=== PATIENT | male | born 1995 | race African-American/Black ===

== ENCOUNTER 2018-05-21 08:37 | Inpatient (IN) ==
[2018-05-21] MEDS ORDERED: ONDANSETRON INJ 2 MG/ML 2 ML VIAL IV STA ×2 (09:02→11:16)
[2018-05-21] MEDS ORDERED: SODIUM CHLORIDE 0.9% 1000ML 1,000 ML IV ONE ×2 (09:02→10:08)
[2018-05-21 09:25] LABS: Basophils # (auto) 0.02 K/uL (0-0.2); Basophils % (auto) 0.4 %; Eosinophils # (auto) 0.03 K/uL (0-0.5); Eosinophils % (auto) 0.6 %; Hematocrit (blood only) 42.4 % (42-52); Immature Granulocytes # (auto) 0.02 K/uL (0.00-0.02); Immature Granulocytes % (auto) 0.4 %; Lymphocytes # (auto) 1.29 K/uL (1.2-3.4); Lymphocytes % (auto) 26.5 %; Mean Corpuscular Volume 87.8 fL (80-100); Mean Platelet Volume 11.2 fL (7.4-10.4); Monocytes # (auto) 0.16 K/uL (0.11-0.59); Monocytes % (auto) 3.3 %; Neutrophils # (auto) 3.35 K/uL (1.4-6.5); Neutrophils % (auto) 68.8 %; Platelet Count 275 K/uL (130-400); RDW Standard Deviation 45.3 fL (36.4-46.3); Red Blood Count 4.83 M/uL (4.7-6.1); White Blood Count 4.87 K/uL (4.8-10.8)
--- NOTE | 2018-05-21 09:25 | XRay Report ---
XR chest 1V portable CLINICAL HISTORY: overdose COMPARISON STUDY: No previous studies for comparison. FINDINGS: Lung volumes are normal. There is no pneumothorax or pleural effusion. There is no consolid ation or evidence for pulmonary edema. Cardiomediastinal silhouette is normal. IMPRESSION: No acute cardiopulmonary findings. Electronically signed by: Portillo Kahn M.D. 05/21/2018 9:24 AM
[2018-05-21 09:35] LABS: INR 1.1 (0.9-1.1); Partial Thromboplastin Ratio 0.8; Partial Thromboplastin Time 21.8 Seconds (21.0-31.0)
[2018-05-21 09:44] LABS: Alanine Aminotransferase 46 U/L (12-78); Albumin Level 3.5 gm/dl (3.4-5.0); Aspartate Aminotransferase 48 U/L (15-37); BUN Creatinine Ratio 14.8 (10-20); Blood Urea Nitrogen 14 mg/dl (7-18); Calcium 8.4 mg/dl (8.5-10.1); Carbon Dioxide 24 mmol/L (21-32); Chloride 111 mmol/L (98-107); Est GFR (African American) 130.4; Est GFR (Non-African American) 112.5; Glucose 162 mg/dl (70-99); Potassium 3.5 mmol/L (3.5-5.1); Sodium 145 mmol/L (136-145)
[2018-05-21 09:49] LABS: Alkaline Phosphatase 70 U/L (45-117); Bilirubin,Total 0.9 mg/dl (0.2-1); Globulin 3.7 gm/dl (2.5-4.0); Total Protein 7.2 gm/dl (6.4-8.2); Troponin I < 0.015 ng/ml (0-0.045)
[2018-05-21] MEDS ORDERED: LORazepam 0.5 MG/1 ML VIAL IV STA ×2 (10:00→12:07)
[2018-05-21 10:03] LABS: Acetaminophen 238 ug/ml (10-30); Salicylate < 1.7 mg/dl (2.8-20)
[2018-05-21] MEDS ORDERED: AcetylCYSTEINE IV 21 HR REGIMEN (>40KG) IV STA (10:05)
[2018-05-21] MEDS ORDERED: DEXTROSE 5% IV ONE ×3 (10:05→15:07)
[2018-05-21] MEDS ORDERED: ACETYLCYSTEINE IV ONE ×3 (10:05→15:07)
--- NOTE | 2018-05-21 10:26 | History & Physical Report ---
Date of Service May 21, 2018 Assessment & Plan (1) Intentional acetaminophen overdose: ED physician spoke with poison control, recs for NAC protocol LFTs WNL Cr WNL Tox sreen + for acetaminophen and EtOH, neg for salicylates, remainder pending EKG with sinus tachy Monitor on tele Psych c/s pending (2) Alcohol use: EtOH withdrawal protocol (3) DVT prophylaxis: SCDs History of Present Illness Primary Care Provider: NO PCP 22 y/o M who was brought to the ED after an intentional overdose attempt. Per ED physician, pt had a roommate with him when he arrived who stated that pt was acting unusual last night. Roommate is not present during my discussion. Pt states he took "10, 20, 30" tylenol last night around 8pm. When asked why, he stated "I don't want to talk about it". He also states he drank about 1/2 of a bottle of whiskey. He states that he does not drink daily, usually only on the weekends, but that would be a typical amount for him to drink when he does drink. No hx of seizures or withdrawals. He denies prior hx of attempted overdose or attempting to hurt himself in other ways. Pt had been vomiting in the ED, however he states he is feeling better now. Pt denies fever, SOB, chest pain, abd pain, n/v/c/d, LE pain or swelling. Allergies Allergy/AdvReac Type Severity Reaction Status Date / Time No Known Allergies Allergy Unverified 05/21/18 08:53 Home Medications Home Medications Medication Instructions Recorded Confirmed Type No Known Home Medications 05/21/18 05/21/18 History Past Med/Surg History Medical History Alcohol abuse (Acute) Social History Feels Safe at Home: Yes Smoking Status: Never smoker Hx Alcohol Use: Yes (1/2 bottle of whiskey on the weekends) Hx Substance Use: No Review of Systems Pertinent positives and negatives reviewed in HPI--all others negative Physical Exam Vital Signs (Past 24 Hours): Last Vital Signs Temp 36.5 C 05/21/18 08:38 Pulse 98 H 05/21/18 10:00 Resp 20 05/21/18 10:00 BP 139/84 05/21/18 10:00 Pulse Ox 97 05/21/18 10:00 Constitutional: WD/WN, vitals as above + ill appearing and + obese; no acute distress Eyes: normal visual rodriguez by confrontation and + anicteric sclerae Neck: normal visual inspection and trachea midline Respiratory: normal respiratory effort, lungs clear to auscultation Cardiovascular: Rate/Rhythm: regular rate and regular rhythm Gastrointestinal (Abdomen): Inspection/Auscultation: abdomen not distended Percussion/Palpation: abdomen soft; abdomen nontender Musculoskeletal: Head/Neck/Chest: normocephalic and head atraumatic negative for edema, peripheral pulses intact Skin: no rashes, warm and dry Neurologic: awake; not confused Speech / Cognition: normal speech Psychiatric: Orientation: oriented x 3 Affect: + flat affect Results & Data Diagnostic Findings CXR: neg for acute ECG Rhythm: sinus tachycardia Code Status & VTE Plan VTE Prophylaxis Plan VTE Prophylaxis will be ordered: Yes
[2018-05-21 10:29] LABS: Amphetamines+Metham, Urine Neg (Neg); Barbiturates, Urine Neg (Neg); Benzodiazepine, Urine Neg (Neg); Cocaine, Urine Neg (Neg); MDMA (Ecstacy), Urine Neg (Neg); Methadone, Urine Neg (Neg); Opiate, Urine Neg (Neg); Phencyclidine, Urine Neg (Neg)
[2018-05-21] MEDS ORDERED: LORazepam 1 MG TAB PO PRN (14:05)
[2018-05-21] MEDS ORDERED: ONDANSETRON INJ 2 MG/ML 2 ML VIAL IV PRN (14:05)
[2018-05-21] MEDS ORDERED: MAGNESIUM HYDROXIDE SUSP 30 ML UDC PO PRN (14:05)
[2018-05-21] MEDS ORDERED: LORazepam 1 MG/2 ML VIAL IV PRN (14:05)
[2018-05-21] MEDS ORDERED: MULTI-VITAMIN INFUSION 10 ML, THIAMINE HCL 100 MG, FOLIC ACID 1 MG in SODIUM CHLORIDE 0... IV SCH (15:00)
--- NOTE | 2018-05-21 15:20 | Emergency Department Note ---
Entered by Rosa M Gagnon acting as a scribe for Karsten Womack MD History of Present Illness General Chief complaint: Overdose (Intentional) Stated complaint: TOOK A BUNCH OF PILLS Time Seen by Provider: 05/21/18 08:50 Source: patient and other (roommate, nursing staff) History of Present Illness Provider complaint: overdose Onset (ago): hour(s) (last night) Location: left and right Pain Consistency: + constant Quality: + other (overdose) Associated symptoms: + nausea/vomiting and + other (abdominal pain) The patient is a 22 year old male who presents to the Emergency Room with an overdose. The patient states that he took 20-30 Equate at once at 1999 last night and drank half of a bottle of whiskey. The patient denies drug use. He states that he did vomit about 30 minutes prior to arrival. He also reports having some abdominal pain. The patient states that he took pills because he "does not like himself." He states that he was trying to hurt himself. The patient denies a history of any medical problems. Per roommate, the patient was crying and was on the phone with his aunt this morning. His roommate states that the patient has been acting "odd" over the last few days. His roommate states that the patient is a heavy drinker. His roommate states that the patient's father in 2016 and reports that the pa tient used a lot of substances that year. His roommate states that the patient was pounding on his door this morning and stated that he "took a ton of pills." Per nursing staff, the patient took 20-30 pills and started to drink a half of a bottle of whiskey last night at 1999. Home Medications Home Medications Medication Instructions Recorded Confirmed Type No Known Home Medications 05/21/18 05/21/18 History Allergies Allergy/AdvReac Type Severity Reaction Status Date / Time No Known Allergies Allergy Unverified 05/21/18 08:53 Past Med/Surg History Medical History Alcohol abuse (Acute) Social History Preferred Language: [place] Communication Ability: Effective Packer Fuser Required: No Beliefs That Will Affect Care: None Current Living Situation: Alone Other Information That Helps Us Care for You: No Feels Safe at Home: No Safety Concerns: Afraid for Self Smoking Status: Never smoker Hx Alcohol Use: Yes Hx Substance Use: No Review of Systems See HPI for pertinent positives & negatives. and A total of 10 systems reviewed and were otherwise negative Physical Exam Vital Signs Vital Signs - 24 hr 05/21/18 08:38 05/21/18 09:35 05/21/18 09:37 Temperature 36.5 C Temperature Source Oral Sepsis Recent Fever Within 48 Hours No Sepsis Action Taken by Nursing No Action Required Pulse Rate 124 H 99 H Pulse Rate [Finger] Pulse Rate from SpO2 Sensor 100 H Respiratory Rate 20 12 Respiratory Effort / Characteristics Non-Labored Respiratory Depth Normal Blood Pressure 160/98 H 136/87 Blood Pressure [Right Arm] Blood Pressure Mean 118 103 Blood Pressure Mean [Right Arm] Blood Pressure Position [Right Arm] Pulse Oximetry 95 97 98 Oxygen Delivery Method Room Air Room Air 05/21/18 10:00 05/21/18 10:30 05/21/18 11:00 Temperature Temperature Source Sepsis Recent Fever Within 48 Hours Sepsis Action Taken by Nursing Pulse Rate 98 H 93 H 96 H Pulse Rate [Finger] Pulse Rate from SpO2 Sensor 98 H 91 H 95 H Respiratory Rate 20 16 16 Respiratory Effort / Characteristics Respiratory Depth Blood Pressure 139/84 122/81 129/83 Blood Pressure [Right Arm] Blood Pressure Mean 102 94 98 Blood Pressure Mean [Right Arm] Blood Pressure Position [Right Arm] Pulse Oximetry 97 97 97 Oxygen Delivery Method 05/21/18 11:30 05/21/18 12:00 05/21/18 12:30 Temperature Temperature Source Sepsis Recent Fever Within 48 Hours Sepsis Action Taken by Nursing Pulse Rate 104 H 102 H 94 H Pulse Rate [Finger] Pulse Rate from SpO2 Sensor 101 H 102 H 94 H Respiratory Rate 13 18 16 Respiratory Effort / Characteristics Respiratory Depth Blood Pressure 125/89 134/88 130/83 Blood Pressure [Right Arm] Blood Pressure Mean 101 103 98 Blood Pressure Mean [Right Arm] Blood Pressure Position [Right Arm] Pulse Oximetry 98 96 98 Oxygen Delivery Method 05/21/18 13:00 05/21/18 13:01 05/21/18 13:02 Temperature Temperature Source Sepsis Recent Fever Within 48 Hours Sepsis Action Taken by Nursing Pulse Rate 101 H 92 H 103 H Pulse Rate [Finger] Pulse Rate from SpO2 Sensor 92 H 92 H 102 H Respiratory Rate 14 14 12 Respiratory Effort / Characteristics Respiratory Depth Blood Pressure 115/80 Blood Pressure [Right Arm] Blood Pressure Mean 91 Blood Pressure Mean [Right Arm] Blood Pressure Position [Right Arm] Pulse Oximetry 97 96 Oxygen Delivery Method 05/21/18 13:49 05/21/18 14:52 Temperature 36.5 C Temperature Source Oral Sepsis Recent Fever Within 48 Hours Sepsis Action Taken by Nursing Pulse Rate 100 H 109 H Pulse Rate [Finger] 101 H Pulse Rate from SpO2 Sensor Respiratory Rate 18 Respiratory Effort / Characteristics Respiratory Depth Blood Pressure Blood Pressure [Right Arm] 140/90 Blood Pressure Mean Blood Pressure Mean [Right Arm] 106 Blood Pressure Position [Right Arm] Lying Pulse Oximetry 99 Oxygen Delivery Method Room Air General: Mildly intoxicated male, holding emesis bag. Answers questions a ppropriately. HEENT: Normal cephalic atraumatic. Pupils are equal round and reactive to light. Extraocular movements are intact. Oropharynx is pink with moist mucous membranes. No swelling of the mouth lips or tongue. Neck: Supple with a midline trachea. No meningeal signs or stiffness, no JVD or bruits. No Stridor. Chest: Clear to auscultation bilaterally. No wheezes or rhonchi. No increased work of breathing. Heart: regular rate and rhythm. Abdomen: Soft nontender, nondistended without rebound guarding or rigidity. Extremities: No cyanosis clubbing or edema. No calf tenderness or assymetry Spine/Back. Non tender to palpation. No CVA tenderness Skin: Good turgor without rashes. Neurologic exam: Cranial nerves two through 12 are intact. Motor and sensation are intact and symmetrical throughout. Psych: Admits to taking an overdose with the intention to hurt himself. Course 0851: I discussed the patient's case with his roommate. 1004: I discussed the patient's case with the Poison Control Center. 1012: I updated the patient. 1020: I discussed the patient's case with Dr. Rodrigo Parker who will evaluate the patient for further management. 1206: I checked on the patient. He is waiting to go upstairs. He is still nauseous with intermittent vomiting. He did get the Acetylcysteine bolus. I am ordering Ativan for him. Consultations Consultation #1: Po[facility] Control Center Time: 10:04 Consultation #2: Dr. Rodrigo Parker Time: 10:20 Administered Medications Acetylcysteine 4,880 mg/ (Dextrose) 524.4 mls @ 125 mls/hr IV ONE ONE Stop: 05/21/18 15:18 Last Admin: 05/21/18 12:01 Dose: 125 mls/hr Documented by: [id number] Discontinued Medications Sodium Chloride (Nss 1000ml) 1,000 mls @ 999 mls/hr IV .Q1H1M ONE Stop: 05/21/18 10:02 Last Infusion: 05/21/18 11:01 Dose: 0 mls/hr Documented by: [id number] Admin: 05/21/18 09:24 Dose: 999 mls/hr Documented by: [id number] Lorazepam (Ativan) 0.5 mg in 1 mls @ 1 mls/min IV NOW STA Stop: 05/21/18 10:01 Last Admin: 05/21/18 10:10 Dose: 1 mls/min Documented by: [id number] Acetylcysteine 14,630 mg/ (Dextrose) 273.15 mls @ 200 mls/hr IV ONE ONE Stop: 05/21/18 11:26 Last Infusion: 05/21/18 12:02 Dose: 0 mls/hr Documented by: [id number] Admin: 05/21/18 10:30 Dose: 200 mls/hr Documented by: [id number] Sodium Chloride (Nss 1000ml) 1,000 mls @ 999 mls/hr IV .Q1H1M ONE Stop: 05/21/18 11:08 Last Infusion: 05/21/18 11:39 Dose: 0 mls/hr Documented by: [id number] Admin: 05/21/18 10:30 Dose: 999 mls/hr Documented by: [id number] Lorazepam (Ativan) 0.5 mg in 1 mls @ 1 mls/min IV NOW STA Stop: 05/21/18 12:08 Last Admin: 05/21/18 12:17 Dose: 1 mls/min Documented by: [id number] Ondansetron HCl (Zofran) 4 mg IV NOW STA Stop: 05/21/18 09:03 Last Admin: 05/21/18 09:24 Dose: 4 mg Documented by: [id number] Ondansetron HCl (Zofran) 4 mg IV NOW STA Stop: 05/21/18 11:17 Last Admin: 05/21/18 11:40 Dose: 4 mg Documented by: [id number] Medical Decision Making Differential Diagnosis The patient is a 22 year old male who presents to the ED with an overdose. D ifferential diagnosis includes overdose, Tylenol toxicity, depression, electrolyte or metabolic abnormality. Medical Records Attestation: I reviewed the patient's medical records. Home Medications Current Medication List: was personally reviewed by me Laboratory Data Attestation: I reviewed the patient's lab results. Result diagrams: 05/21/18 09:11 05/21/18 09:11 Lab Results 05/21/18 05/21/18 05/21/18 Range/Units 09:11 09:11 09:11 WBC 4.87 (4.8-10.8) K/uL RBC 4.83 (4.7-6.1) M/uL Hgb 14.0 (14.0-18.0) g/dL Hct 42.4 (42-52) % MCV 87.8 (80-100) fL MCH 29.0 (25-34) pg MCHC 33.0 (32-36) g/dL RDW Std Deviation 45.3 (36.4-46.3) fL RDW Coeff of Marii 14.0 (11.5-14.5) % Plt Count 275 (130-400) K/uL MPV 11.2 H (7.4-10.4) fL Immature Gran % (Auto) 0.4 % Neut % (Auto) 68.8 % Lymph % (Auto) 26.5 % [place] % (Auto) 3.3 % Eos % (Auto) 0.6 % Baso % (Auto) 0.4 % Immature Gran # (Auto) 0.02 (0.00-0.02) K/uL Neut # (Auto) 3.35 (1.4-6.5) K/uL Lymph # (Auto) 1.29 (1.2-3.4) K/uL [place] # (Auto) 0.16 (0.11-0.59) K/uL Eos # (Auto) 0.03 (0-0.5) K/uL Baso # (Auto) 0.02 (0-0.2) K/uL PT 11.0 (9.0-12.0) Seconds INR 1.1 (0.9-1.1) APTT 21.8 (21.0-31.0) Seconds PTT Ratio 0.8 Sodium 145 (136-145) mmol/L Potassium 3.5 (3.5-5.1) mmol/L Chloride 111 H (98-107) mmol/L Carbon Dioxide 24 (21-32) mmol/L Anion Gap 10.0 (3-11) BUN 14 (7-18) mg/dl Creatinine 0.96 (0.6-1.4) mg/dl Est Cr Clr Drug Dosing Not Reportable Est GFR ( Amer) 130.4 Est GFR (Non-Af Amer) 112.5 BUN/Creatinine Ratio 14.8 (10-20) Glucose 162 H (70-99) mg/dl Calcium 8.4 L (8.5-10.1) mg/dl Total Bilirubin 0.9 (0.2-1) mg/dl AST 48 H (15-37) U/L ALT 46 (12-78) U/L Alkaline Phosphatase 70 (45-117) U/L Troponin I < 0.015 (0-0.045) ng/ml Total Protein 7.2 (6.4-8.2) gm/dl Albumin 3.5 (3.4-5.0) gm/dl Globulin 3.7 (2.5-4.0) gm/dl Albumin/Globulin Ratio 1.0 (0.9-2) Salicylates (2.8-20) mg/dl Urine Opiates Screen (Neg) Ur Methadone, Qual (Neg) Acetaminophen (10-30) ug/ml Urine Barbiturates (Neg) Ur Phencyclidine (PCP) (Neg) U Amphetamin/Meth Scrn (Neg) MDMA (Ecstasy) Screen (Neg) U Benzodiazepines Scrn (Neg) Ur Cocaine Metabolite (Neg) U Marijuana (THC) Screen (Neg) Ethyl Alcohol mg/dL (0-3) mg/dl 05/21/18 05/21/18 05/21/18 Range/Units 09:11 09:11 09:56 WBC (4.8-10.8) K/uL RBC (4.7-6.1) M/uL Hgb (14.0-18.0) g/dL Hct (42-52) % MCV (80-100) fL MCH (25-34) pg MCHC (32-36) g/dL RDW Std Deviation (36.4-46.3) fL RDW Coeff of Marii (11.5-14.5) % Plt Count (130-400) K/uL MPV (7.4-10.4) fL Immature Gran % (Auto) % Neut % (Auto) % Lymph % (Auto) % [place] % (Auto) % Eos % (Auto) % Baso % (Auto) % Immature Gran # (Auto) (0.00-0.02) K/uL Neut # (Auto) (1.4-6.5) K/uL Lymph # (Auto) (1.2-3.4) K/uL [place] # (Auto) (0.11-0.59) K/uL Eos # (Auto) (0-0.5) K/uL Baso # (Auto) (0-0.2) K/uL PT (9.0-12.0) Seconds INR (0.9-1.1) APTT (21.0-31.0) Seconds PTT Ratio Sodium (136-145) mmol/L Potassium (3.5-5.1) mmol/L Chloride (98-107) mmol/L Carbon Dioxide (21-32) mmol/L Anion Gap (3-11) BUN (7-18) mg/dl Creatinine (0.6-1.4) mg/dl Est Cr Clr Drug Dosing Est GFR ( Amer) Est GFR (Non-Af Amer) BUN/Creatinine Ratio (10-20) Glucose (70-99) mg/dl Calcium (8.5-10.1) mg/dl Total Bilirubin (0.2-1) mg/dl AST (15-37) U/L ALT (12-78) U/L Alkaline Phosphatase (45-117) U/L Troponin I (0-0.045) ng/ml Total Protein (6.4-8.2) gm/dl Albumin (3.4-5.0) gm/dl Globulin (2.5-4.0) gm/dl Albumin/Globulin Ratio (0.9-2) Salicylates < 1.7 L (2.8-20) mg/dl Urine Opiates Screen Neg (Neg) Ur Methadone, Qual Neg (Neg) Acetaminophen 238 H* (10-30) ug/ml Urine Barbiturates Neg (Neg) Ur Phencyclidine (PCP) Neg (Neg) U Amphetamin/Meth Scrn Neg (Neg) MDMA (Ecstasy) Screen Neg (Neg) U Benzodiazepines Scrn Neg (Neg) Ur Cocaine Metabolite Neg (Neg) U Marijuana (THC) Screen Neg (Neg) Ethyl Alcohol mg/dL 134.6 H (0-3) mg/dl Imaging Data Radiologist's Impression: Radiology results as stated below per my review and the radiologist's interpretation: XR chest 1V portable CLINICAL HISTORY: overdose COMPARISON STUDY: No previous studies for comparison. FINDINGS: Lung volumes are normal. There is no pneumothorax or pleural effusion. There is no consolidation or evidence for pulmonary edema. Cardiomediastinal silhouette is normal. IMPRESSION: No acute cardiopulmonary findings. Electronically signed by: Portillo Kahn M.D. 05/21/2018 9:24 AM ECG Data Attestation: I personally reviewed and interpreted this ECG as follows: Indication: toxicologic Rate (beats per minute): 102 Rhythm: sinus tachycardia Findings: + other (non-specific ST and T wave abnormalities, normal intervals); no prolonged QT Comparison ECG Date: no prior available Blood Pressure Blood Pressure Findings: Normal blood pressure MDM Narrative This patient comes in as described above. He was placed in room A5. He was b rought in by his friend after taking an intentional overdose. He tells me he took this at 8 PM last evening he drank alcohol and took an estimated 20 or 30 pills of Tylenol. He has been vomiting this morning. He denies any other medications or street drugs. He admits that this was an attempt to hurt himself. On my exam, he appeared appears to be sleepy but answers questions appropriately and he has vomiting and gagging intermittently. He has no tremors. IV access established and blood work was obtained I was very concerned about the Tylenol. His Tylenol level did come back significantly elevated although his blood alcohol is also over 130. Thus far liver functions and coagulation studies are not significantly elevated he has no other significant electrolyte or metabolic abnormalities otherwise EKG was unremarkable. Given his level of Tylenol and the ingestion, I do think he needs the antidote at this point and was given the N-acetylcysteine IV as per our 21-hour protocol. He was given the bolus and then the second bag as well in the ER he has received IV normal saline boluses. He did have nausea and did receive several doses of IV Zofran as well as a 2 doses of IV Ativan. He was intermittently mildly anxious as well which that would help as well. He definitely needs to be admitted for his Tylenol overdose and the N-acetylcysteine protocol I did discuss the case wi th the poison center they agree. I discussed the case further with Dr. Rosa Chandler, she saw the patient in the ER and will admit him for these measures. Impression & Plan Tylenol overdose, Alcohol intoxication, Depression, Nausea & vomiting Critical Care Time I have personally spent greater than 30 minutes of critical care time in the direct management of this patient. This includes bedside care, interpretation of diagnostic studies, and testing, discussion with consultants, patient, and family members, and other required patient management activities. This 30 minutes is in excess of all separately billable procedures. Critical Care Time: Yes Total Critical Care Time: 30 Discharge Plan Visit Data *Final* Discharge Date/Time: 05/21/18 13:21 Chief Complaint: Overdose (Intentional) Stated Complaint: TOOK A BUNCH OF PILLS ED Provider: Karsten Womack Discharge Problem: Tylenol overdose, Alcohol intoxication, Depression, Nausea & vomiting Patient Disposition: Admitted As Inpatient Discharge Instructions Interventions: ED Discharge Assessment Last Done: 05/21/18 13:21 The scribe's documentation has been prepared under my direction and personally reviewed by me in its entirety. I confirm that the note above accurately reflects all work, treatment, procedures, and medical decision making performed by me.
[2018-05-21] MEDS: NSS + 20MEQ KCL 20 MEQ/1,000 ML BAG IV SCH (19:30)
[2018-05-22] MEDS: NSS + 20MEQ KCL 20 MEQ/1,000 ML BAG IV SCH ×2 (05:07→15:14)
[2018-05-22 06:51] LABS: INR 1.1 (0.9-1.1); Prothrombin Time 11.3 Seconds (9.0-12.0)
[2018-05-22 06:59] LABS: Albumin Level 2.9 gm/dl (3.4-5.0); BUN Creatinine Ratio 7.1 (10-20); Bilirubin Direct 0.3 mg/dl (0-0.2); Bilirubin,Total 1.1 mg/dl (0.2-1); Calcium 7.5 mg/dl (8.5-10.1); Creatinine Clr Calc Pharmacy 167.4 ml/min; Est GFR (African American) 149.6; Potassium 3.1 mmol/L (3.5-5.1)
[2018-05-22] MEDS ORDERED: ACETYLCYSTEINE IV ONE (09:15)
[2018-05-22] MEDS ORDERED: DEXTROSE 5% IV ONE (09:15)
--- NOTE | 2018-05-22 12:04 | Family Medicine Progress Note ---
Date of Service May 22, 2018 Assessment & Plan (1) Intentional acetaminophen overdose: 22-year-old male with no significant past medical history presents with intentional acetaminophen overdose/suicide attempt. Describes persistent depression without treatment. Intentional acetaminophen overdose/suicide attempt Psych consult, appreciate recommendations Poison control consulted, continue NAC protocol, completed 20 hours of infusion. Poison control recommends 12 more hours. Tylenol level was 238 on admission, repeat testing has been less than 2 Mild increase of AST to 48, total bili of 1.1 Continue to follow LFTs, INR Suicide risk Patient states that psychiatry would like to treat the patient on inpatient once he is medically cleared Discussed plan for outpatient treatment for depression including SSRIs, therapy Discussed plan for subsequent attempts including contract that he will check in with his family and friends and will go to the emergency room immediately if he has persistent thoughts of suicide Disposition; continue NAC protocol for another 12 hours, patient can be transferred to [facility], after completing infusion of NAC, the patient can be transferred to inpatient psychiatry (2) Tylenol overdose: (3) Alcohol intoxication: (4) Depression: (5) Nausea & vomiting: (6) DVT prophylaxis: (7) Alcohol use: Supervising Physician Co-Signing Physician Notes I personally examined the patient and verified all mayberry points of history and exam, discussed case, and agree with decision making with Dr Gabriel. Feeling better. Notes that he is no longer suicidal. He is willing to do inpatient psychiatry care. As an outpatient is willing to do meds/counseling/lifestyle modification. No abdominal pain/nausea/confusion. Vitals noted, in general he is awake and alert no distress. HEENT normocephalic atraumatic mucous membranes are moist. Skin shows no rashes no pallor or icterus. He has no scleral icterus. Breathing is unlabored no accessory muscle use good effort. Tylenol overdosewith suicidal intent. Continue an ADDY per protocol/per poison control recommendations. Continue to follow LFTs and INR. His acetaminophen level is now undetectable. Continue supportive care. Depression/suicidalityfor inpatient psych after he is medically able to be discharged (more than likely tomorrow depending on his labs) otherwise as above Subjective 22-year-old male with no significant past medical history presents following a suicide attempt with Tylenol overdose. Patient presented to the emergency room on 05/21/2018 after taking 20 Tylenol pills the night before. He also admits to drinking half a bottle of whiskey. Patient states that over the past year he has had depression, but has not sought treatment. 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 He states that the stress of school work and grief of losing his father in 2016 has brought about depressed mood. On the evening of the he states that he was feeling especially down and began drinking. He feels like his disinhibited state caused him to impulsively take Tylenol pills. He denies having a plan in the past, but he does admit to having passive thoughts of suicide in the past. Patient describes that he immediately went to his roommate after ingesting the pills and asked for help. In addition, he is informed a family member of his hospitalization. Review of systems Constitutional; no fevers, chills, night sweats Abdomen; moderate epigastric pain, no nausea/vomiting/diarrhea Psych; depressed mood is described above Physical Exam Vital Signs (Past 24 Hours): Last Vital Signs Temp 37.0 C 05/22/18 11:08 Pulse 80 05/22/18 11:08 Resp 16 05/22/18 11:08 BP 147/93 H 05/22/18 11:08 Pulse Ox 100 05/22/18 11:08 Constitutional: WD/WN, vitals as above Eyes: PERRL, conjunctivae normal, anicteric sclerae ENMT: external ear and nose normal, oropharynx normal Neck: trachea midline, no thyromegaly Respiratory: normal respiratory effort, lungs clear to auscultation Cardiovascular: RRR, no murmur, no edema Gastrointestinal (Abdomen): normal bowel sounds, soft, nontender, no hepatosplenomegaly Musculoskeletal: no cyanosis or clubbing, extremities motor strength 5/5 Skin: no rashes, warm and dry Neurologic: patellar DTR's 2+ bilat, sensation intact Psychiatric: Orientation: alert Affect: + flat affect Lymphatic: no cervical or axillary lymphadenopathy Results & Data Laboratory Results Laboratory Last Values WBC 4.87 K/uL (4.8-10.8) 05/21/18 09:11 RBC 4.83 M/uL (4.7-6.1) 05/21/18 09:11 Hgb 14.0 g/dL (14.0-18.0) 05/21/18 09:11 Hct 42.4 % (42-52) 05/21/18 09:11 MCV 87.8 fL (80-100) 05/21/18 09:11 MCH 29.0 pg (25-34) 05/21/18 09:11 MCHC 33.0 g/dL (32-36) 05/21/18 09:11 RDW Std Deviation 45.3 fL (36.4-46.3) 05/21/18 09:11 RDW Coeff of Marii 14.0 % (11.5-14.5) 05/21/18 09:11 Plt Count 275 K/uL (130-400) 05/21/18 09:11 MPV 11.2 fL (7.4-10.4) H 05/21/18 09:11 Immature Gran % (Auto) 0.4 % 05/21/18 09:11 Neut % (Auto) 68.8 % 05/21/18 09:11 Lymph % (Auto) 26.5 % 05/21/18 09:11 Emanuel % (Auto) 3.3 % 05/21/18 09:11 Eos % (Auto) 0.6 % 05/21/18 09:11 Baso % (Auto) 0.4 % 05/21/18 09:11 Immature Gran # (Auto) 0.02 K/uL (0.00-0.02) 05/21/18 09:11 Neut # (Auto) 3.35 K/uL (1.4-6.5) 05/21/18 09:11 Lymph # (Auto) 1.29 K/uL (1.2-3.4) 05/21/18 09:11 Emanuel # (Auto) 0.16 K/uL (0.11-0.59) 05/21/18 09:11 Eos # (Auto) 0.03 K/uL (0-0.5) 05/21/18 09:11 Baso # (Auto) 0.02 K/uL (0-0.2) 05/21/18 09:11 PT 11.3 Seconds (9.0-12.0) 05/22/18 05:58 INR 1.1 (0.9-1.1) 05/22/18 05:58 APTT 21.8 Seconds (21.0-31.0) 05/21/18 09:11 PTT Ratio 0.8 05/21/18 09:11 Sodium 140 mmol/L (136-145) 05/22/18 05:58 Potassium 3.1 mmol/L (3.5-5.1) L 05/22/18 05:58 Chloride 108 mmol/L (98-107) H 05/22/18 05:58 Carbon Dioxide 27 mmol/L (21-32) 05/22/18 05:58 Anion Gap 5.0 (3-11) 05/22/18 05:58 BUN 6 mg/dl (7-18) L D 05/22/18 05:58 Creatinine 0.78 mg/dl (0.6-1.4) 05/22/18 05:58 Est Cr Clr Drug Dosing 167.4 ml/min 05/22/18 05:58 Est GFR ( Amer) 149.6 05/22/18 05:58 Est GFR (Non-Af Amer) 129.0 05/22/18 05:58 BUN/Creatinine Ratio 7.1 (10-20) L 05/22/18 05:58 Glucose 108 mg/dl (70-99) H 05/22/18 05:58 Calcium 7.5 mg/dl (8.5-10.1) L 05/22/18 05:58 Total Bilirubin 1.1 mg/dl (0.2-1) H 05/22/18 05:58 Direct Bilirubin 0.3 mg/dl (0-0.2) H 05/22/18 05:58 AST 41 U/L (15-37) H 05/22/18 05:58 ALT 55 U/L (12-78) 05/22/18 05:58 Alkaline Phosphatase 53 U/L (45-117) 05/22/18 05:58 Troponin I < 0.015 ng/ml (0-0.045) 05/21/18 09:11 Total Protein 6.0 gm/dl (6.4-8.2) L 05/22/18 05:58 Albumin 2.9 gm/dl (3.4-5.0) L 05/22/18 05:58 Globulin 3.7 gm/dl (2.5-4.0) 05/21/18 09:11 Albumin/Globulin Ratio 1.0 (0.9-2) 05/21/18 09:11 Folate 3.37 ng/ml (>5.38) L 05/21/18 14:18 Salicylates < 1.7 mg/dl (2.8-20) L 05/21/18 09:11 Urine Opiates Screen Neg (Neg) 05/21/18 09:56 Ur Methadone, Qual Neg (Neg) 05/21/18 09:56 Acetaminophen < 2 ug/ml (10-30) L 05/22/18 08:31 Urine Barbiturates Neg (Neg) 05/21/18 09:56 Ur Phencyclidine (PCP) Neg (Neg) 05/21/18 09:56 U Amphetamin/Meth Scrn Neg (Neg) 05/21/18 09:56 MDMA (Ecstasy) Screen Neg (Neg) 05/21/18 09:56 U Benzodiazepines Scrn Neg (Neg) 05/21/18 09:56 Ur Cocaine Metabolite Neg (Neg) 05/21/18 09:56 U Marijuana (THC) Screen Neg (Neg) 05/21/18 09:56 Ethyl Alcohol mg/dL 134.6 mg/dl (0-3) H 05/21/18 09:11 Resident Activity Tracking Resident Involvement: Resident Care Provided Care Provided: Adult Hospital Medicine (1) Depression Depression Type: unspecified Qualified Code(s): F32.9 - Major depressive disorder, single episode, unspecified (2) Tylenol overdose Encounter type: initial encounter Injury intent: undetermined intent Qualified Code(s): T39.1X4A - Poisoning by 4-Aminophenol derivatives, undetermined, initial encounter (3) Nausea & vomiting Vomiting type: unspecified
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
[2018-05-22 21:39] LABS: INR 1.1 (0.9-1.1); Prothrombin Time 11.4 Seconds (9.0-12.0)
[2018-05-22 22:10] LABS: Albumin Level 2.9 gm/dl (3.4-5.0); Bilirubin Direct 0.2 mg/dl (0-0.2); Bilirubin,Total 0.4 mg/dl (0.2-1); Total Protein 6.2 gm/dl (6.4-8.2)
[2018-05-23] MEDS: NSS + 20MEQ KCL 20 MEQ/1,000 ML BAG IV SCH (01:03)
[2018-05-23 07:11] LABS: INR 1.1 (0.9-1.1); Prothrombin Time 11.2 Seconds (9.0-12.0)
[2018-05-23 07:42] LABS: Albumin Level 2.9 gm/dl (3.4-5.0); Bilirubin Direct 0.1 mg/dl (0-0.2); Bilirubin,Total 0.5 mg/dl (0.2-1)
[2018-05-23] MEDS ORDERED: FOLIC ACID 1 MG TAB PO SCH (09:00)
--- NOTE | 2018-05-23 13:14 | Discharge Summary ---
Date of Service May 23, 2018 Admission HPI Per Admitting Provider Renard NelsonJr. is a 22-year-old male [employer] who presented to the ED following an intentional overdose of Tylenol incombination with alcohol use. Pt was brought to the ED by his roommate. Acetaminophen level on admission was 238; and BAL was 134.6. Pt was transferred to the medical floor for treatment. Pt is seen on psychiatric consult service due to his intentional overdose and determination of recommendations moving forward. Pt was cooperative with interview. 1:1 aid remained present in the room, and patient was seen along with psychiatric liaison nurse. Pt states he has been un juan significant pressure for the past year or so. He admits that his father 2 years ago, and as the oldest child, he is expected to assist his mother and siblings, taking on that fatherly role. Pt states he has managed this stress rather well, but reports a change in thought after spring. Pt reports desiring to visit with family in [place] over spring, but states he as told by his mother he was expected to be home and help with the family. This disappointment was reportedly ongoing when he returned to [employer], reporting low mood and a desire to isolate from friends. Pt states he was able to maintain motivation to attend work and classes, but states, "everything is always put on me, I wasn't able to do what I wanted to do." Pt states he had bought the Tylenol knowing an overdose was his intention. He does admit that his hope was to end his life. Looking back on his attempt, patient states he is "ashamed, that was childish. 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 He states energy, appetite, sleep, and motivation have remained consistent. He denies episodes of low mood or hopelessness prior to this past week. He denies specific triggers for anxiety or history of panic episodes. He has never received psychiatric treatment and has not been prescribed any medications in the past. Pt states he no longer desires to end his life and suicidal thoughts have not been ongoing. He is, however, willing for admission for further psychiatric treatment if it is recommended. He identifies an aunt as support and is planning to stay with her for a month, with intention to restart school for summer term. Discharge Data Consultations 05/21/18 14:05 Consult Case Management - Discharge Planning Routine Consult Psychiatry Routine Hospital Course (1) Intentional acetaminophen overdose: 22-year-old male with no significant past medical history presents with intentional acetaminophen overdose/suicide attempt. Describes persistent depression without treatment, likely worsened by ETOH use. Pt was placed on NAC for >24hrs. LFTs did not significantly elevate. Pt was placed for inpatient psych rehab. Intentional acetaminophen overdose/suicide attempt Poison control consulted, N-Acetyl Cysteine Course completed for 32hours. Tylenol level was 238 on admission, repeat testing has been less than 2 Mild increase of AST to 48, total bili of 1.1, liver enzymes have since normalized. Patient is medically cleared for inpatient psychiatric evaluation as of 05/23/18. Suicide risk Appreciate Psych input - they recommend impatient psych rehabilitation. Defer to Psych for further recs. Please see Dr. Frank's addendum for today's Physical Exam Findings. (2) Tylenol overdose: (3) Alcohol intoxication: (4) Depression: (5) Nausea & vomiting: (6) DVT prophylaxis: (7) Alcohol use: Supervising Physician Co-Signing Physician Notes I personally examined the patient and verified all mayberry points of history and exam, discussed case, and agree with decision making with Dr Richard Feeling good, wants to go to inpatient psych. Has no complaints, no concerns. Updated patient on his lab normalization. Vitals noted, in general he is awake and alert and oriented x3 pleasant no distress, breathing is unlabored no accessory muscle use good effort. Skin shows no rashes no pallor or icterus. Depression/suicide attempt by Tylenol overdosehis LFTs have now normalized, he is stable for transfer to inpatient psych. Otherwise as above. Less than 30 minutes Resident Activity Tracking Resident Involvement: Resident Care Provided Care Provided: Adult Hospital Medicine
[2018-05-23] MEDS ORDERED: ALUMINUM/MAGNESIUM SUSP 30 ML UDC PO PRN (13:17)
[2018-05-23] MEDS ORDERED: MAGNESIUM HYDROXIDE SUSP 30 ML UDC PO PRN (13:17)
[2018-05-23] MEDS ORDERED: SODIUM CHLORIDE 0.65% NA SOLN 45 ML (OCEAN) PRN (13:17)
[2018-05-23] MEDS ORDERED: ACETAMINOPHEN 325 MG TAB PO PRN (13:17)
[2018-05-23] MEDS ORDERED: BISMUTH SUBSALICYLATE PER ML OMNICELL CHARGE PO PRN (13:17)
== END 2018-05-23 13:38 | DRG 918 ==
LOC: ED 08:37 → 2S 10:36 → SUATTDRO 10:36 → 2S 13:21 → 4E 05-22 13:28